=== PATIENT | female | born 1970 | race African-American/Black ===

== ENCOUNTER 2017-03-08 13:29 | Emergency (ER) | payer MEDICAID ==
[~2017-03-08] VITALS: Ht 167.6 cm; Wt 110.0 kg
[2017-03-08] MEDS ORDERED: KETOROLAC 60MG/2ML VIAL IM ONE (15:15)
[2017-03-08 15:22] VITALS: BP 139/89
== END 2017-03-08 16:05 | disposition home or self-care (01) ==
LOC: ER 14:44
DX: R51 Headache (principal); I10 Essential (primary) hypertension; Z88.6 Allergy status to analgesic agent
CPT/HCPCS: 96372; 99283; J1885

== ENCOUNTER 2017-12-19 13:46 | Emergency (ER) | payer MEDICAID ==
[~2017-12-19] VITALS: Ht 165.1 cm; Wt 93.0 kg
[2017-12-19] MEDS ORDERED: LISI-186 PO (13:58)
[2017-12-19] MEDS ORDERED: KETOROLAC 60MG/2ML VIAL IM ONE (15:30)
[2017-12-19 17:20] VITALS: BP 116/74
== END 2017-12-19 17:51 | disposition home or self-care (01) ==
LOC: ER 14:20
DX: M53.3 Sacrococcygeal disorders, not elsewhere classified (principal); M79.672 Pain in left foot; M79.605 Pain in left leg; I10 Essential (primary) hypertension; Z91.81 History of falling; Z88.5 Allergy status to narcotic agent
CPT/HCPCS: 72220; 81025; 96372; 99284; J1885

== ENCOUNTER 2019-05-25 14:38 | Emergency (ER) | payer MEDICAID ==
[~2019-05-25] VITALS: Ht 162.6 cm; Wt 86.0 kg
[~2019-05-25 14:38] MED LIST: LISI-186 PO
[2019-05-25 14:59] VITALS: BP 141/89
[2019-05-25] MEDS ORDERED: KETOROLAC 30MG/ML VIAL IM ONE (15:45)
== END 2019-05-25 16:49 | disposition home or self-care (01) ==
LOC: ER 14:42
DX: S46.812A Strain of other muscles, fascia and tendons at shoulder and upper arm level, left arm, initial encounter (principal); M13.812 Other specified arthritis, left shoulder; Z88.5 Allergy status to narcotic agent; X58.XXXA Exposure to other specified factors, initial encounter; Y93.89 Activity, other specified; Y92.89 Other specified places as the place of occurrence of the external cause; Y99.8 Other external cause status
CPT/HCPCS: 73030; 96372; 99283; J1885

== ENCOUNTER 2023-08-12 19:48 | Emergency (ER) | payer SELFPAY ==
[~2023-08-12] VITALS: Ht 167.6 cm; Wt 98.0 kg
[2023-08-12 20:08] VITALS: TEMP 98.4; O2SAT 100
[2023-08-12] MEDS: KETOROLAC 15MG/ML VIAL IM ONE (20:15)
[2023-08-12] MEDS: ACETAMINOPHEN 325MG TABLET PO ONE (22:24)
[2023-08-12] MEDS ORDERED: CYCL10TA21 MT (22:51)
[2023-08-12] MEDS ORDERED: LIDO700A15 TP (22:51)
[2023-08-12] MEDS ORDERED: NAPR-1176 MT (22:51)
[2023-08-12 23:12] VITALS: BP 137/91; PULSE 71; RESP 16
== END 2023-08-12 23:13 | disposition home or self-care (01) ==
LOC: ER 19:48
DX: S40.011A Contusion of right shoulder, initial encounter (principal); E11.9 Type 2 diabetes mellitus without complications; I10 Essential (primary) hypertension; M54.2 Cervicalgia; Z90.49 Acquired absence of other specified parts of digestive tract; Z98.890 Other specified postprocedural states; V49.49XA Driver injured in collision with other motor vehicles in traffic accident, initial encounter; Y93.89 Activity, other specified; Y92.89 Other specified places as the place of occurrence of the external cause; Y99.8 Other external cause status
CPT/HCPCS: 99282